=== PATIENT | female | born 1955 | race Hispanic/Latino ===

== ENCOUNTER → 2017-11-03 | Outpatient (CLI) | payer OTHER ==
--- NOTE | 2017-11-03 13:53 | Diagnostic Imaging Report ---
PROCEDURE:CLAVICLE RIGHT TECHNIQUE:One view of the right clavicle (AP) INDICATION:Swelling of the right clavicle COMPARISON:None. FINDINGS: No fracture or dislocation. Mild degenerative changes of the acromioclavicular joint CONCLUSION: No displaced right clavicle fracture. Dictated by: Jules Martinez M.D. on 11/03/2017 at 13:54 Electronically approved by: Jules Martinez M.D. on 11/03/2017 at 13:54
== END ==
LOC: RAD 12:27
PROVIDERS: ATTEND Internal Medicine
DX: M25.511 Pain in right shoulder (principal); M25.411 Effusion, right shoulder

== ENCOUNTER → 2018-08-25 | Outpatient (CLI) | payer OTHER ==
--- NOTE | 2018-08-25 14:52 | Diagnostic Imaging Report ---
Exam: Cervical spine AP lateral oblique History: Neck pain Comparison: None. Findings: No fracture or malalignment. Multilevel degenerative disc disease most prominent at C3-C4 through C5-C6 with small posterior disc osteophyte complexes. Facet arthrosis. Foraminal stenosis. No abnormal soft tissue calcification or soft tissue defect. Impression: Multilevel cervical spondyloarthropathy most prominent at C3-C4 through C5-C6 with foraminal stenosis. Signed by: Dr. Alexis Lucio M.D. on 08/25/2018 2:49 PM
--- NOTE | 2018-08-25 14:53 | Diagnostic Imaging Report ---
Exam: Left shoulder 2 views History: Pain Comparison: None. Findings: No fracture or malalignment. Mild acromioclavicular arthrosis. Glenohumeral joint maintained. No abnormal soft tissue calcification or soft tissue defect. Impression: No acute osseous abnormality. Mild acromioclavicular arthrosis. Signed by: Dr. Alexis Lucio M.D. on 08/25/2018 2:50 PM
== END ==
LOC: RAD 13:27
PROVIDERS: ATTEND Internal Medicine
DX: M25.512 Pain in left shoulder (principal); M54.2 Cervicalgia
CPT/HCPCS: 72050